=== PATIENT | male | born 1985 | race Caucasian/White ===

== ENCOUNTER 2020-09-03 06:52 | Emergency (ER) | payer OTHER ==
[~2020-09-03] VITALS: Ht 175.3 cm; Wt 81.8 kg
[2020-09-03 07:01] VITALS: BP 111/59
[2020-09-03] MEDS ORDERED: CYCL5TAB PO (07:30)
--- NOTE | 2020-09-03 07:30 | PHYS DOC ---
Past History Past Surgical History: No Surgical History Alcohol Use: Occasionally General Adult EDM: Chief Complaint: BACK PAIN OR INJURY HPI: HPI: Patient is a 35 year old male who presents with left-sided back pain. Started this morning while doing a lift. States that this is happened before without lifting in the past. Pain is localized to the left lower back. No radicular back pain. No weakness, numbness, saddle anesthesia. No bowel or bladder incontinence. No fevers or chills. No immunosuppressive medications. No IVDU. In the past these pains of typically gotten better for him over 48 hours with Tylenol, ibuprofen, and Flexeril. Review of Systems: Review of Systems: Constitutional: Denies fever or chills Eyes: Denies change in visual acuity HENT: Denies nasal congestion or sore throat Respiratory: Denies cough or shortness of breath Cardiovascular: Denies chest pain or edema GI: Denies abdominal pain, nausea, vomiting, bloody stools or diarrhea : Denies dysuria Musculoskeletal: + back pain. No joint pain Integument: Denies rash Neurologic: Denies headache, focal weakness or sensory changes Endocrine: Denies polyuria or polydipsia Lymphatic: Denies swollen glands Psychiatric: Denies depression or anxiety Family History: Family History: No pertinent family history Physical Exam: PE: Constitutional: Well developed, well nourished, no acute distress, non-toxic appearance. [] HENT: Normocephalic, atraumatic, bilateral external ears normal, oropharynx moist, no oral exudates, nose normal. [] Eyes: PERRLA, EOMI, conjunctiva normal, no discharge. [] Neck: Normal range of motion, no tenderness, supple, no stridor. [] Cardiovascular:Heart rate regular rhythm, no murmur [] Lungs & Thorax: Bilateral breath sounds clear to auscultation [] Abdomen: Bowel sounds normal, soft, no tenderness, no masses, no pulsatile masses. [] Skin: Warm, dry, no erythema, no rash. [] Back: No tenderness, no CVA tenderness. [] Extremities: No tenderness, no cyanosis, no clubbing, ROM intact, no edema. [] Neurologic: Alert and oriented X 3, normal motor function, normal sensory function, no focal deficits noted. [] Specifically 5/5 strength bilaterally in: L1-4: adduction of thighs L3-4: extension at knee L4-5: dorsiflexion of ankle L5: Extension of toes S1-S2: Plantarflexion of ankle Psychologic: Affect normal, judgement normal, mood normal. [] Current Patient Data: Vital Signs: Vital Signs Date Time Temp Pulse Resp B/P (MAP) Pulse Ox O2 Delivery O2 Flow Rate FiO2 09/03/20 07:01 97.7 75 18 111/59 97 Room Air EKG: EKG: [] Radiology/Procedures: Radiology/Procedures: [] Heart Score: C/O Chest Pain: N/A Risk Factors: Risk Factors: DM, Current or recent (<one month) smoker, HTN, HLP, family history of CAD, obesity. Risk Scores: Score 0 - 3: 2.5% MACE over next 6 weeks - Discharge Home Score 4 - 6: 20.3% MACE over next 6 weeks - Admit for Clinical Observation Score 7 - 10: 72.7% MACE over next 6 weeks - Early Invasive Strategies Course & Med Decision Making: Course & Med Decision Making Pertinent Labs and Imaging studies reviewed. (See chart for details) Patient is a 35-year-old male without pertinent past medical history who presents with left lower back pain after lifting. History and exam are consistent with muscular strain. He has had similar episodes in the past and responded well to Tylenol, ibuprofen, and Flexeril. Here on exam has no neurologic deficits. No back pain red flags. Do not feel that he requires any imaging here in the ED. Will prescribe a short course of Flexeril and asked him to take Tylenol ibuprofen on a schedule. Jorge A Disclaimer: Jorge A Disclaimer: This electronic medical record was generated, in whole or in part, using a voice recognition dictation system. Departure Departure: Impression: Primary Impression: Lumbar back pain Disposition: HOME / SELF CARE / HOMELESS Condition: STABLE Referrals: PCP,UNKNOWN (PCP) Additional Instructions: Your back pain is likely muscular in origin. For pain tylenol and ibuprofen are best used on a schedule. Please alternate between the two. -Tylenol 1000 mg every 6 hours (do not exceed 4000 mg in one day) -Ibuprofen 400 mg every 6 hours. Take with food. Do not take for more than 1 week. You can also take flexeril (cyclobenzaprine) 5 mg every 8 hours as needed. This can make you drowsy. Please do not operate heavy machinery. Please limit use as much as possible. Scripts Cyclobenzaprine Hcl (CYCLOBENZAPRINE HCL) 5 Mg Tablet 5 MG PO Q8HRS PRN for MUSCLE SPASMS for 3 Days, #10 TAB Prov: ANNMARIE HATFIELD MD 09/03/20 ANNMARIE HATFIELD MD Sep 03, 2020 07:30
== END 2020-09-03 07:57 | disposition home or self-care (01) ==
LOC: ER 06:52
DX: M54.5 Low back pain (principal)
CPT/HCPCS: 99283